=== PATIENT | male | born 1945 | race Caucasian/White ===

== ENCOUNTER 2018-04-23 16:39 | Inpatient (IN) ==
[2018-04-23 19:21] LABS: URINE SOURCE CLEAN CATCH
[2018-04-23 19:28] LABS: BASO# 0.02 X1000 (0.0-0.2); BASO% 0.1 % (0.0-0.8); EOS# 0.09 X1000 (0.0-0.7); EOS% 0.6 % (0.0-10.0); HEMATOCRIT 44.9 % (42.0-52.0); HEMOGLOBIN 15.5 g/dL (14.0-18.0); IMM GRAN# 0.05 X1000 (0.0-0.04); IMM GRAN% 0.4 % (0.0-0.5); LYMPH# 1.94 X1000 (1.2-3.4); LYMPH% 13.7 % (20.5-51.1); MCH 31.6 PG (27-31); MCHC 34.5 g/dL (33-37); MCV 91.6 FL (81-99); MONO# 1.37 X1000 (0.11-0.59); MONO% 9.7 % (1.7-9.3); MPV 11.1 FL (7.4-10.4); NEUT# 10.66 X1000 (1.4-6.5); NEUT% 75.5 % (42.2-75.2); PLT 164 X1000 (130-400); RDW 12.2 % (11.5-14.5); WBC 14.13 X1000 (4.8-10.8)
[2018-04-23 19:31] LABS: BILIRUBIN URINE NEGATIVE (NEGATIVE); BLOOD URINE NEGATIVE (NEGATIVE); COLOR YELLOW; GLUCOSE URINE NEGATIVE (NEGATIVE); KETONE URINE NEGATIVE (NEGATIVE); LEUKOCYTES URINE NEGATIVE (NEGATIVE); NITRITE URINE NEGATIVE (NEGATIVE); PROTEIN URINE NEGATIVE (NEGATIVE); SP GRAVITY URINE 1.004; TURBIDITY URINE CLEAR (CLEAR); UR EPITHELIAL CELLS <10 /HPF (<10); URINE BACTERIA NEGATIVE /HPF; URINE RBC <10 /HPF (<10); URINE WBC <10 /HPF (<10); UROBILINOGEN URINE NORMAL (NORMAL)
[2018-04-23 19:51] LABS: AGAP 14; ALB/GLOB RATIO 1.6; ALBUMIN 4.4 g/dL (3.5-5.0); ALKALINE PHOSPHATASE 106 U/L (32-122); AMYLASE 52 U/L (20-200); BUN 15 mg/dL (8-22); CALCIUM 9.1 mg/dL (8.8-10.2); CHLORIDE 95 mmol/L (98-107); COSMO 274; CREATININE 0.9 mg/dL (0.7-1.2); ESTIMATED GFR > 60; GLUCOSE 124 mg/dL (70-104); GOT 20 U/L (10-34); GPT 19 U/L (10-44); LIPASE 32 U/L (13-60); POTASSIUM 4.1 mmol/L (3.5-5.1); SODIUM 136 mmol/L (136-145); TCO2 27 mmol/L (25-35); TOTAL BILIRUBIN 1.39 mg/dL (0.20-1.00); TOTAL PROTEIN 7.2 g/dL (6.3-8.3)
--- NOTE | 2018-04-23 20:27 | Diag Imaging Result Doc PS360 ---
EXAM: CT ABD/PELVIS W/IV CONT ONLY HISTORY: jerry-umbilicAL PAIN TECHNIQUE: CT abdomen and pelvis with intravenous contrast COMPARISON: None. FINDINGS: There is inflammation about the gallbladder with mild gallbladder wall thickening. There is a 5 mm adherent stone within it. There is fatty infiltration of the liver. Normal spleen, pancreas, and adrenal glands. There are several nonobstructing renal stones. No hydronephrosis. No aortic aneurysm. Prominent atherosclerosis. No bowel obstruction. There are scattered colonic diverticula. No abscess. No ascites. Urinary bladder is distended and is normal. The calcifications within the prostate. There are multiple pelvic phleboliths. 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 No subluxation. Prominent degenerative changes at L2-3. IMPRESSION: 1.Cholecystitis 2.Fatty infiltration of the liver 3.Diverticulosis 4.Nonobstructing right renal stones This report was discussed with Tony in the emergency room on 04/23/2018 at 8:25 PM and was readback. This exam was performed using automated exposure control, adjustment of mA or kV according to patient size, and/or use of iterative reconstruction technique. Electronically signed by Gatito Mathur 04/23/2018 8:26 PM
[2018-04-23] MEDS ORDERED: ZOSYN 3.375 GM in NS 50 ML IV ONE (20:32)
[2018-04-23] MEDS ORDERED: ZOFRAN IV ONE (21:19)
[2018-04-23] MEDS ORDERED: DILAUDID IV ONE (21:19)
[2018-04-23] MEDS ORDERED: COZAAR PO ONE (21:42)
[2018-04-23] MEDS ORDERED: TYLENOL LIQUID PO ONE (22:23)
[2018-04-23] MEDS ORDERED: TYLENOL PO PRN (22:23)
[2018-04-23] MEDS ORDERED: ZOFRAN IV PRN (22:23)
[2018-04-23] MEDS ORDERED: TYLENOL PO ONE (22:30)
[2018-04-23] MEDS: NS 1,000 ML IV SCH (22:44)
[2018-04-24] MEDS: MORPHINE IV PRN ×5 (00:50→21:59)
--- NOTE | 2018-04-24 01:30 | HISTORY AND PHYSICAL ---
PRIMARY CARE PHYSICIAN: Keron Cano MD REASON FOR ADMISSION: Two to three day history of nausea and abdominal pain. HISTORY OF PRESENT ILLNESS: Mr. Aniket Gonzalez is a 72-year-old man with past medical history of non-Hodgkin's lymphoma, hyperlipidemia, type 2 diabetes, hypertension and coronary artery disease. He states that he was in a good state of health when about 3 days ago he started having some vague upper abdominal cramping spells. He called his daughter and his daughter gave him a tablet of Zofran which he did not use right away. During the course of that night he started having the same cramps anteriorly in his right flank along with some nausea and he took the tablet of Zofran for this. He said within an hour the symptoms resolved and he felt much better. He awaked in the morning to be totally pain-free and symptom-free. During the course of the entire day of Sunday, i.e. yesterday, he said he was doing rather well until the evening when he had a recurrence of similar abdominal discomfort with some vague nausea. No vomiting, no diarrhea, no fever and no chills. No cardiorespiratory complaints with this. These vague abdominal cramps he describes have no specific aggravating or relieving factors, no radiation anywhere. Throughout the course of the day he said this discomfort continued to linger and about mid day today he noticed that the discomfort had spread to his upper back just below the right scapula. He said it got worse with any slight movement and was somewhat a little sharper than before. Despite that, he had no other accompanying symptoms with this other than nausea. The patient denies any polyuria or polydipsia. No genitourinary complaints. No neurologic complaints. No rash or arthralgia. He informed me that he had seen Dr. Keron Cano yesterday for this, but by the time he saw him, he was pretty much asymptomatic and so nothing was done at that time. ALLERGIES: The patient said he itches when he takes large amounts of codeine. SOCIAL HISTORY: She does not smoke, drink or use drugs. , lives with her . HOME MEDICATIONS: Atorvastatin 40 mg daily, Nexium 40 mg daily, Imdur 30 mg daily, Cozaar 50 mg b.i.d., metformin 850 mg b.i.d., Toprol 25 mg q.a.m., Ranexa 500 mg q.12, aspirin 81 mg daily, Mobic 50 mg daily. PAST SURGICAL HISTORY: Includes left inguinal lymph node biopsy, appendectomy, right arthroscopic knee surgery, vocal polyp excision. FAMILY HISTORY: Notable for diabetes and heart disease in first-degree relatives. SOCIAL HISTORY: He lives with his and cares for her. His has dementia. He does not smoke, drink or use illicit drugs. LAB WORK: Notable for white count 14,000, hemoglobin 15, hematocrit 44, platelets 164,000, 75% neutrophils. BUN is 16, creatinine 0.9, glucose 124, total bilirubin 1.4. Amylase and lipase normal. Urinalysis is normal. CT of the abdomen and pelvis showed thickening of the gallbladder consistent with cholecystitis and fatty liver disease. He also has diverticulosis and nonobstructing renal stones. PHYSICAL EXAMINATION: GENERAL: Pleasant, overweight elderly man who is not in acute distress. He is A and O x3 with normal mood and affect. HEENT: Head is normocephalic and atraumatic. Eyes: KARINA, EOMI. He is anicteric, not pale. ENT and oropharynx exam grossly within normal limits. No oropharyngeal exudates or erythema. No central cyanosis. NECK: Supple. No JVD, carotid bruits or thyromegaly. CHEST: Clear when auscultated with good air entry in both lung horvath. CARDIOVASCULAR: First and second heart sounds are heard. No gallops, murmurs or rubs. Rhythm is regular. ABDOMEN: Protuberant and soft with surprisingly not focal areas of tenderness. No masses or organomegaly. Bowel sounds are hypoactive at this time. Boas sign was negative. Samuel's sign also was negative. RECTAL: Exam deferred. EXTREMITIES: The patient has good 2+ pulse volume distally in all extremities. Rhythm is regular and symmetrical. No edema, clubbing or peripheral cyanosis. NEUROLOGICAL: No focal deficits. SKIN: Intact with no breakdown, lesions, or erythema. MUSCULAR: Exam is grossly normal. ASSESSMENT: At this time: 1. Acute cholecystitis. 2. Coronary artery disease. 3. Type 2 diabetes. 4. Hypertension. 5. Hyperlipidemia. 6. Diverticulosis. 7. Fatty liver disease. 8. Urolithiasis, nonobstructing. PLAN: The patient will be hydrated, kept n.p.o. Dr. Lopez was consulted and notified. The patient will be started on prophylactic antibiotics, i.e. Zosyn for now. He will probably undergo laparoscopic cholecystectomy in the a.m. We will transfer the patient's care to Dr. Keron Cano in the a.m. Diabetes will be managed with sliding scale. Blood pressure medications will be given provided the patient's blood pressure is not normotensive in the postoperative period. A.m. aspirin was rescheduled in care the patient goes for surgery in the a.m. Will continue other antianginal medications during the phase of his surgery. cc: MD Keron Robertson MD
[2018-04-24] MEDS: ZOSYN 3.375 GM in NS 50 ML IV SCH ×4 (03:26→22:00)
[2018-04-24] MEDS: NS 1,000 ML IV SCH ×2 (05:37→22:13)
[2018-04-24 05:48] LABS: BASO# 0.02 X1000 (0.0-0.2); BASO% 0.2 % (0.0-0.8); EOS# 0.06 X1000 (0.0-0.7); EOS% 0.6 % (0.0-10.0); HEMATOCRIT 45.3 % (42.0-52.0); HEMOGLOBIN 15.6 g/dL (14.0-18.0); IMM GRAN# 0.03 X1000 (0.0-0.04); IMM GRAN% 0.3 % (0.0-0.5); LYMPH# 1.03 X1000 (1.2-3.4); LYMPH% 9.9 % (20.5-51.1); MCH 31.8 PG (27-31); MCHC 34.4 g/dL (33-37); MCV 92.3 FL (81-99); MONO# 0.87 X1000 (0.11-0.59); MONO% 8.3 % (1.7-9.3); NEUT# 8.44 X1000 (1.4-6.5); NEUT% 80.7 % (42.2-75.2); PLT 157 X1000 (130-400); RBC 4.91 XMIL (4.7-6.1); RDW 12.4 % (11.5-14.5); WBC 10.45 X1000 (4.8-10.8)
--- NOTE | 2018-04-24 06:00 | GENERAL SURGERY CONSULTATION ---
DATE: 04/24/2018 REQUESTING PHYSICIAN: The hospitalist. REASON FOR CONSULTATION: Consult is concerning cholecystitis. HISTORY OF PRESENT ILLNESS: A 72-year-old, male with a past medical history of non- Hodgkin's lymphoma, hyperlipidemia, type 2 diabetes, hypertension, coronary artery disease, presenting with a couple day history of pain. He had vague cramping abdominal pain 3 days prior to presentation and it seemed to improved. Then he started having the same pain the night prior to admission. He came to the emergency department with right upper quadrant and periumbilical pain. He had a CT scan that showed cholecystitis. The patient is now feeling better but again, he described a periumbilical and right upper quadrant pain, and radiating to his right shoulder. It was slightly worse with movement and it is associated with nausea. Given this, he has been admitted. I was asked to weigh an opinion for cholecystectomy. PAST MEDICAL HISTORY: 1. Non-Hodgkin's lymphoma. 2. Hyperlipidemia. 3. Type 2 diabetes. 4. Hypertension. 5. Coronary artery disease. PAST SURGICAL HISTORY: 1. Left inguinal hernia lymph node biopsy. 2. Appendectomy. 3. Knee surgery. 4. Vocal cord polyp excision. HOME MEDICATIONS: Reviewed. ALLERGIES: Itching when he takes codeine. SOCIAL HISTORY: Denies alcohol, tobacco, or illicit drugs. FAMILY HISTORY: Notable for diabetes and heart disease. SOCIAL HISTORY: As stated above. REVIEW OF SYSTEMS: A full 10 point review of systems was obtained and negative except as specified in the HPI. PHYSICAL EXAMINATION: Vital Signs: The patient is currently afebrile. Vital signs are stable. General Examination: No acute distress. Resting comfortably but appears slightly uncomfortable. male, looks stated age. HEENT: Normocephalic, atraumatic. Pupils equal, round, reactive to light. Mucous membranes moist. Oropharynx benign. Neck: Supple. Trachea midline. Cardiovascular: Regular rate and rhythm. Lungs: Grossly clear. Abdomen: Some tenderness to palpation in the right upper quadrant. No peritoneal signs. Extremities: Moves all extremities. Neurologic: Grossly intact. Skin: No signs of jaundice. Vascular: All extremities perfused. LABORATORY: Reviewed. White blood cell count is 14, hematocrit is 44, platelet count 164,000. Bilirubin is slightly elevated at 1.39, alkaline phosphatase is normal. CT scan independently reviewed and radiology report reviewed. Patient does have some stranding around his gallbladder to suggest cholecystitis. He also has changes that look like fatty liver disease. ASSESSMENT/PLAN: A 72-year-old with multiple medical comorbidities, now with cholecystitis and fatty liver disease. 1. Multiple medical comorbidities, at this time being managed by the hospitalist service and then transitioned over to Dr. Keron Cano, his primary care physician, this morning. We will defer to them. 2. Cholecystitis. At this time, we will plan on surgical intervention with a laparoscopic cholecystectomy. The patient is on antibiotics. Discussed with him the risks, benefits, and alternatives of the procedure, risks including but not limited to bleeding, infection, risk of anesthesia, risk of common bile duct injury, risk of bile leak, risk of injuring surrounding tissues. This was all discussed with the patient extensively. We will plan on surgical intervention today. The patient is nothing per oral. 3. Fatty liver disease. At this time, given the fact that he has it on CT scan and we are already removing his gallbladder, I discussed with the patient about getting a liver biopsy while we are in the operating room. We will plan on doing this today. I appreciate the consult. cc: MD Keron Lin MD
[2018-04-24] MEDS: HUMALOG SUBQ SCH ×4 (06:22→21:58)
[2018-04-24] MEDS: PRILOSEC PO SCH (06:23)
[2018-04-24 06:50] LABS: AGAP 13; ALB/GLOB RATIO 1.4; ALKALINE PHOSPHATASE 106 U/L (32-122); BUN 11 mg/dL (8-22); CALCIUM 8.6 mg/dL (8.8-10.2); CHLORIDE 95 mmol/L (98-107); COSMO 274; CREATININE 0.9 mg/dL (0.7-1.2); ESTIMATED GFR > 60; GLUCOSE 149 mg/dL (70-104); GOT 21 U/L (10-34); GPT 19 U/L (10-44); MAGNESIUM 1.2 mg/dL (1.5-2.7); POTASSIUM 4.3 mmol/L (3.5-5.1); SODIUM 136 mmol/L (136-145); TCO2 28 mmol/L (25-35); TOTAL BILIRUBIN 1.46 mg/dL (0.20-1.00); TOTAL PROTEIN 6.9 g/dL (6.3-8.3)
[2018-04-24] MEDS: TOPROL XL PO SCH (08:21)
[2018-04-24] MEDS: RANEXA PO SCH ×2 (08:25→22:01)
[2018-04-24] MEDS: IMDUR PO SCH (08:26)
[2018-04-24] MEDS: COZAAR PO SCH ×2 (08:26→22:01)
[2018-04-24] MEDS ORDERED: MAGNESIUM SULFATE 2 GM/S.W.I. 2 GM/50 ML IVPB IV ONE (08:36)
[2018-04-24] MEDS ORDERED: XYLOCAINE-MPF 2% ONE (12:03)
[2018-04-24] MEDS ORDERED: DIPRIVAN 1% ONE (12:03)
--- NOTE | 2018-04-24 12:22 | EKG Report ---
Test Performed on : 04/23/2018 5:22:10 PM Test Reason : ED. NO EKG ORDER FOR MUSE Blood Pressure : / mmHG Vent. Rate : 063 BPM Atrial Rate : 063 BPM P-R Int : 180 ms QRS Dur : 106 ms QT Int : 610 ms P-R-T Axes : 037 -47 -07 degrees QTc Int : 624 ms Normal sinus rhythm. Left axis deviation Nonspecific T wave abnormality Prolonged QT Abnormal ECG When compared with ECG of 14-MAY-2013 14:45, QT has lengthened Unconfirmed Result
[2018-04-24] MEDS ORDERED: XYLOCAINE-MPF 1% ONE (12:25)
[2018-04-24] MEDS ORDERED: SODIUM CHLORIDE 0.9% ONE (12:25)
[2018-04-24] MEDS ORDERED: SENSORCAINE-MPF 0.5%/EPI 1:200,000 ONE (12:25)
[2018-04-24] MEDS ORDERED: LR 1,000 ML ONE (12:26)
[2018-04-24] MEDS ORDERED: NORCURON ONE (13:10)
[2018-04-24] MEDS ORDERED: QUELICIN (DOSE) ONE (13:10)
[2018-04-24] MEDS ORDERED: STERILE WATER INJ. ONE (13:10)
[2018-04-24] MEDS ORDERED: ROBINUL ONE (13:10)
[2018-04-24] MEDS ORDERED: ZOFRAN ONE (13:25)
[2018-04-24] MEDS ORDERED: DECADRON ONE (13:25)
[2018-04-24] MEDS ORDERED: MORPHINE ONE ×2 (14:00→14:12)
[2018-04-24] MEDS ORDERED: TORADOL ONE (14:29)
[2018-04-24] MEDS ORDERED: ULTRAM PO PRN (15:04)
[2018-04-24] MEDS ORDERED: LIPITOR PO SCH (21:00)
[2018-04-24] MEDS: PERIDEX MT SCH (21:58)
[2018-04-24] MEDS: ASPIRIN PO SCH (22:01)
[2018-04-25] MEDS: ZOSYN 3.375 GM in NS 50 ML IV SCH ×2 (03:17→08:56)
--- NOTE | 2018-04-25 05:23 | OPERATIVE NOTE ---
PROCEDURE DATE: 04/24/2018 PREOPERATIVE DIAGNOSES: 1. Acute cholecystitis. 2. Fatty liver disease. POSTOPERATIVE DIAGNOSES: 1. Acute cholecystitis. 2. Fatty liver disease. PROCEDURES PERFORMED: 1. Laparoscopic cholecystectomy. 2. Laparoscopic wedge resection of segment 4 of the liver. SURGEON: Abdelrahman Lopez MD. LITHOGRAPHIC GENERAL WORKER: None. ANESTHESIA: General endotracheal. INTRAOPERATIVE FINDINGS: As dictated. COMPLICATIONS: None at the time of this dictation. ESTIMATED BLOOD LOSS: 20 mL. SPECIMENS REMOVED: Gallbladder and liver. DRAINS: A 19-Ecuadorean drain. BRIEF HISTORY: A 72-year-old gentleman presenting with right upper quadrant pain. He had a CT scan that showed cholecystitis and also fatty liver disease. It was felt that he would benefit from a cholecystectomy and liver biopsy. The risks, benefits, and alternatives were discussed and documented in the chart. All questions were answered. DESCRIPTION OF PROCEDURE: After informed consent was obtained, the patient was brought to the operative theater, transferred to the operative table and placed in supine position. General endotracheal anesthesia was then performed without complication. A formal time-out was then performed confirming the patient, date, and procedure, all are in agreement. At that time attention was given to the abdomen. An infraumbilical incision was made through which using Optiview technique we inserted an 11-mm trocar connected to insufflation, pneumoperitoneum was achieved. Under direct visualization I placed 3 more trocars, all 5 mm, 1 subxiphoid, 2 in the right upper quadrant. Using these the gallbladder was identified, retracted cephalad. We did have to drain some of the contents from the gallbladder, and there was some purulence in the gallbladder consistent with cholecystitis, but we had to do this to elevate it to be able to grasp it better. We were able to elevate and retract it cephalad. We dissected out the cystic duct and cystic artery to achieve the critical view of safety. We doubly clipped and ligated the cystic duct and cystic artery. The cystic duct was somewhat dilated and I got 3 clips across on the stained side, and we were able to dissect the gallbladder off the gallbladder fossa with electrocautery at that point. We noticed the liver was a little bit consistent with fatty liver disease. We took a biopsy of it with a wedge resection, maintaining hemostasis with electrocautery and there was no bile leakage or bleeding at the completion of the case. We placed both specimens in an endobag and brought it out through the infraumbilical incision. Given the purulence in the clips being on a dilated duct we elected to leave a drain from most lateral trocar site, which we placed laparoscopically and secured in place. We then removed all trocars after closing the infraumbilical incision with 0 Vicryl on a [employer] device. We then closed all skin incisions with 4-0 Monocryl. The patient tolerated the procedure well and was transferred back to the recovery room in stable condition. He will be observed overnight. cc: MD Keron Lin MD
--- NOTE | 2018-04-25 06:25 | PROGRESS NOTE ---
DATE: 04/24/2018 SUBJECTIVE: The patient's chart was reviewed. In summary, the patient was admitted yesterday with intractable nausea and abdominal discomfort. A CT scan was performed in the emergency department revealing cholecystitis and fatty infiltration of the liver. The patient was admitted, general surgery was consulted, and IV Zosyn therapy was initiated. Initially, the patient's white blood cell count was noted to be elevated at 14.13. Overnight, the patient did reasonably well. His pain was controlled with as needed IV morphine. This morning, the patient stated he was prepared for surgical intervention. White count had improved to 10.5. He denied fevers, chills, nausea, and vomiting. Pain was controlled. The patient was taken to surgery by Dr. Lopez. A laparoscopic cholecystectomy and liver biopsy was performed. The patient tolerated this well. A drain was left intact. This evening, the patient states he feels well with the exception of intermittent right upper quadrant pain. He is tolerating p.o. He denies fevers or chills. OBJECTIVE: Vital Signs: T-max 99.2 degrees, heart rate 55-87, respirations 8-19, blood pressure 122-189/67-91. General: Well nourished, well developed, no acute distress. Cardiovascular: Regular rate and rhythm. No significant murmurs, rubs, or gallops. Pulmonary: Clear to auscultation anteriorly. Abdomen: Soft. Postoperative tenderness. Positive bowel sounds. Extremities: Moves all extremities well. No significant clubbing, cyanosis, or edema. Dermatologic: Evaluation reveals no evidence of rash. LABORATORY DATA: White blood cell count 10.45, hemoglobin 15.6, hematocrit 45.3, platelet count is 157,000. Sodium 136, potassium 4.3, chloride 95, bicarbonate 28, BUN 11, creatinine 0.9, glucose 149, calcium 8.6, magnesium 1.2, total bilirubin 1.46, total protein 6.9, albumin 4.0, alkaline phosphatase 106, AST 21, ALT 19. ASSESSMENT AND PLAN: 1. Acute cholecystitis - as above, the patient is status post laparoscopic cholecystectomy. Drain is intact. Pain is reasonably controlled. We will continue Zosyn for 24 hours. We will continue as-needed analgesics. We will follow his clinical course closely. 2. Hypomagnesemia - the patient was repleted 2 g of magnesium this morning. 3. Hypertension - for now, we will continue his home regimen. Blood pressure is reasonably controlled at present time. 4. Diabetes - the patient's metformin has been held. We will continue sliding scale insulin. 5. Coronary artery disease - we will continue the patient's optimized medical management. He is asymptomatic. 6. Disposition - at this point the patient continues to require fpc care in a hospital setting. We will plan discharge home once appropriate. cc: Keron Cano MD
[2018-04-25] MEDS: PRILOSEC PO SCH (06:39)
[2018-04-25 07:34] VITALS: BP 135/73
--- NOTE | 2018-04-25 08:19 | GENERAL SURGERY PROGRESS NOTE ---
DATE: 04/25/2018 SUBJECTIVE: The patient seems to be doing well, some soreness, but sounds appropriate. OBJECTIVE: Vital Signs: The patient is currently afebrile. His vital signs are stable. General: No acute distress. Cardiovascular: Regular rate and rhythm. Lungs: Grossly clear. Abdomen: Soft, appropriately tender. JACINDA drain in place with serosanguineous output. ASSESSMENT AND PLAN: A 72-year-old status post laparoscopic cholecystectomy, laparoscopic wedge resection of segment 4 of the liver. Postoperative state, at this time patient the seems to be doing well. I think it is safe for him to be discharged home. We will defer to his primary care physician, Dr. Cano, but at this time, would keep the Vince-Porras drain in place and have him follow up with me in a week. I put prescriptions for pain medicine in the chart. cc: MD Keron Lin MD
[2018-04-25] MEDS: PERIDEX MT SCH (08:55)
[2018-04-25] MEDS: COZAAR PO SCH (08:55)
[2018-04-25] MEDS: TOPROL XL PO SCH (08:55)
[2018-04-25] MEDS: ASPIRIN PO SCH (08:56)
[2018-04-25] MEDS: IMDUR PO SCH (08:56)
[2018-04-25] MEDS: RANEXA PO SCH (08:56)
[2018-04-25] MEDS: HUMALOG SUBQ SCH ×2 (09:03→11:48)
[2018-04-25] MEDS: MORPHINE IV PRN (10:56)
--- NOTE | 2018-04-26 10:57 | DISCHARGE SUMMARY ---
ADMISSION DATE: 04/23/2018 DISCHARGE DATE: 04/25/2018 ADMISSION DIAGNOSIS: Nausea and abdominal pain. DISCHARGE DIAGNOSES: 1. Acute cholecystitis. 2. Hypomagnesemia. 3. Hypertension, present on arrival. 4. Diabetes, present on arrival. 5. Coronary artery disease, present on arrival. CONSULTATIONS: Dr. Lopez with General Surgery was consulted for further evaluation and management of acute cholecystitis. PROCEDURES: 1. CT scan of the abdomen and pelvis was performed on 04/23/2018, which revealed cholecystitis. Fatty infiltration of liver. Diverticulosis. Nonobstructing right renal stones. 2. Laparoscopic cholecystectomy and liver biopsy was performed on 04/24/[address] Lopez. HISTORY AND PHYSICAL EXAMINATION: See admit note. PHYSICAL EXAMINATION: Prior to discharge, temperature 99.3 degrees, heart rate 69, respirations 18, blood pressure is 135/73. General: Well nourished, well developed, in no acute distress. Cardiovascular: Regular rate and rhythm. No significant murmurs, rubs, or gallops. Pulmonary: Clear to auscultation bilaterally. Abdomen: Soft. Postoperative tenderness, nondistended. Positive bowel sounds. Extremities: Moves all extremities well. No significant clubbing, cyanosis, or edema. Dermatologic: Evaluation reveals no evidence of rash. LABORATORY DATA: Prior to discharge: None. HOSPITAL COURSE: The patient was admitted as per history and physical examination. Hospital course per condition is as follows. 1. Acute cholecystitis - Upon admission, patient was noted to have profound abdominal discomfort. CT scan confirmed cholecystitis. Patient was placed empirically on Zosyn therapy. IV pain medications were provided for symptomatic relief. Dr. Lopez was consulted. On the morning of 04/24/2018, patient was taken for surgical intervention. Patient tolerated this quite well. A drain was left intact. Patient will be discharged home with a drain intact. We will continue tramadol as needed for pain. Follow up with Dr. Lopez will be arranged. 2. Hypomagnesemia - Upon admission, patient was noted to have hypomagnesemia. Patient was treated with magnesium sulfate IV while hospitalized. We will remain aware as an outpatient. 3. Hypertension - The patient's blood pressure remained reasonably controlled while hospitalized on his home regimen. This will be continued at discharge. 4. Diabetes - The patient's metformin was held while hospitalized. We will resume this at discharge. Blood sugars remained reasonably controlled. 5. Coronary artery disease - The patient has longstanding disease. He is treated with optimum medical management. He denied chest discomfort while hospitalized. DISCHARGE CONDITION: Good. DISPOSITION: Discharged to home. MEDICATIONS: 1. Acetaminophen 650 mg every 6 hours as needed. 2. Biotin 1000 mcg daily. 3. Timoptic eye drops daily. 4. Tramadol 50 mg every 6 hours as needed. 5. Co-Q10 at 100 mg daily. 6. Lexapro 20 mg daily. 7. Nexium 40 mg daily. 8. Imdur 30 mg daily. 9. Atorvastatin 40 mg at bedtime. 10. Ranexa 500 mg every 12 hours. 11. Aspirin 81 mg daily. 12. Metoprolol ER 25 mg daily. 13. Glucophage 850 mg twice daily. 14. Losartan 50 mg daily. FOLLOWUP: The patient is to follow up with me in approximately 1 to 2 weeks. Patient is to follow up with Dr. Lopez as arranged. cc: Keron Cano MD
== END 2018-04-25 13:37 | disposition home or self-care (01) | DRG 419 ==
LOC: ED 16:39 → 4N 21:34 → SUATTDRO 21:34
PROVIDERS: ADMIT Internal Medicine; ATTEND Internal Medicine
CPT/HCPCS: 74177; 80053; 81001; 82150; 82948; 83690; 83735; 85025; 88304; 88307; 88313; 93005; 94761; 94799; 96365; 96375; 99285; A9270; J0330; J1100; J1170; J1815; J1885; J2270; J2405; J2543; J3475; J7030; J7120; Q9966; Q9967; XXXXX